=== PATIENT | male | born 1950 | race Caucasian/White ===

== ENCOUNTER → 2020-08-24 | Outpatient (CLI) | payer MEDICARE ==
[~2020-08-24] MED LIST: OMNIPAQUE 350 MG/ML, 150 ML BOTTLE ONE
== END | disposition home or self-care (01) ==
LOC: CFH 14:55
PROVIDERS: ATTEND Internal Medicine Cardiovascular Disease
DX: R91.1 Solitary pulmonary nodule (principal); I48.91 Unspecified atrial fibrillation
CPT/HCPCS: 71046; 75572; Q9967

== ENCOUNTER 2020-08-27 10:19 | Observation (INO) | payer MEDICARE ==
[~2020-08-27] VITALS: Ht 177.8 cm; Wt 76.3 kg
[2020-08-27 02:00] VITALS: BP 118/76
[2020-08-27] MEDS ORDERED: SODIUM CHLORIDE 0.9% 1,000 ML IV SCH (11:00)
[2020-08-27] MEDS ORDERED: SODIUM CHLORIDE 0.9% 1,000 ML IV ONE (11:00)
[2020-08-27] MEDS ORDERED: LIDOCAINE 2%, 20ML ONE (11:15)
[2020-08-27 11:18] LABS: BASOPHILS % (AUTO) 1 % (0-1); EOSINOPHILS % (AUTO) 2 % (1-7); LYMPHOCYTES % (AUTO) 16 % (22-44); MEAN CORPUSCULAR HEMOGLOBIN 31.6 pg (27.5-34.5); MEAN CORPUSCULAR HGB CONC 34.3 g/dL (33.2-36.2); MEAN PLATELET VOLUME 6.6 fL (7.4-10.4); MONOCYTES % (AUTO) 10 % (2-9); NEUTROPHILS % (AUTO) 71 % (42-75); PLATELET COUNT 637 x10^3/uL (130-400); RED BLOOD COUNT 5.17 x10^6/uL (4.38-5.82); RED CELL DISTRIBUTION WIDTH 12.6 % (9.4-14.8)
[2020-08-27 11:19] LABS: MD NO
[2020-08-27] MEDS ORDERED: RIVA20TA PO (11:19)
[2020-08-27] MEDS ORDERED: LEVO150T5 PO (11:19)
[2020-08-27] MEDS ORDERED: METO25TA91 PO (11:19)
[2020-08-27] MEDS ORDERED: PHENYLEPHRINE 10 MG/ML ONE (11:22)
[2020-08-27] MEDS ORDERED: ONDANSETRON 2MG/ML, 2ML ONE (11:22)
[2020-08-27] MEDS ORDERED: EPHEDRINE 50 MG/ML, 1ML ONE (11:22)
[2020-08-27] MEDS ORDERED: DEXAMETHASONE 4 MG/ML, 1ML ONE (11:22)
[2020-08-27 11:25] LABS: ANION GAP 5 mmol/L (5-15); CALCIUM 9.2 mg/dL (8.5-10.1); CHLORIDE 108 mmol/L (98-107); CREATININE 0.96 mg/dL (0.7-1.3)
[2020-08-27] MEDS: PLEASE ENTER ALLERGIES MC SCH ×2 (11:30→20:47)
[2020-08-27] MEDS ORDERED: MIDAZOLAM 1 MG/ML, 2ML ONE (11:32)
[2020-08-27] MEDS ORDERED: FENTANYL PF 250 MCG/5ML ONE (11:32)
[2020-08-27] MEDS ORDERED: HEPARIN 1,000 UNITS/ML, 10ML ONE ×2 (12:48)
[2020-08-27] MEDS ORDERED: ROCURONIUM 10MG/ML,5ML ONE (12:48)
[2020-08-27] MEDS ORDERED: PROPOFOL 10 MG/ML, 20ML ONE (12:48)
[2020-08-27] MEDS ORDERED: FENTANYL PF 100 MCG/2ML ONE (14:13)
[2020-08-27] MEDS ORDERED: PROMETHAZINE 25 MG/ML, 1ML IVPush PRN (14:30)
[2020-08-27] MEDS ORDERED: HYDROmorphone 1 MG/ML, 1ML INJ IVPush PRN (14:30)
[2020-08-27] MEDS ORDERED: LABETALOL 5MG/ML, 20ML IV PRN (14:30)
[2020-08-27] MEDS ORDERED: ONDANSETRON 2MG/ML, 2ML IVPush PRN (14:30)
[2020-08-27] MEDS ORDERED: OXYcodone 5 MG/5 ML ORAL.SOL UDC PO PRN (14:30)
[2020-08-27] MEDS ORDERED: hydrALAzine 20 MG/ML, 1ML IV PRN (14:30)
[2020-08-27] MEDS ORDERED: ACETAMINOPHEN 325 MG TABLET PO PRN ×2 (14:30)
[2020-08-27] MEDS ORDERED: PROMETHAZINE 12.5 MG SUPP PR PRN (14:30)
[2020-08-27] MEDS ORDERED: MEPERIDINE/PF 25MG/0.5ML IVPush PRN (14:30)
[2020-08-27] MEDS ORDERED: FENTANYL PF 100 MCG/2ML IV PRN (14:30)
[2020-08-27] MEDS ORDERED: EPHEDRINE 50 MG/ML, 1ML IVPush PRN (14:30)
[2020-08-27] MEDS ORDERED: ALBUTEROL SULFATE 2.5 MG/3 ML NPPB PRN (14:30)
[2020-08-27] MEDS ORDERED: DIPHENHYDRAMINE 50 MG/ML, 1ML IVPush ONE (14:30)
[2020-08-27] MEDS ORDERED: MIDAZOLAM 1 MG/ML, 2ML IV PRN (14:30)
[2020-08-27] MEDS ORDERED: DIAZEPAM 5 MG/ML, 2ML IVPush PRN (14:30)
[2020-08-27] MEDS ORDERED: RIVAROXABAN 20 MG TABLET PO ONE ×3 (15:00→16:00)
[2020-08-27] MEDS: SOTALOL 80MG TABLET PO SCH (18:41)
[2020-08-27 20:00] VITALS: BP 108/67
[2020-08-27] MEDS: COLCHICINE 0.6 MG CAPSULE PO SCH (20:47)
[2020-08-28 02:55] VITALS: BP 93/56
[2020-08-28] MEDS: PLEASE ENTER ALLERGIES MC SCH ×2 (04:39→08:23)
[2020-08-28] MEDS: SOTALOL 80MG TABLET PO SCH (06:04)
[2020-08-28 06:30] VITALS: BP 105/71
[2020-08-28] MEDS ORDERED: RIVAROXABAN 20 MG TABLET PO SCH ×2 (08:00→09:00)
[2020-08-28] MEDS: COLCHICINE 0.6 MG CAPSULE PO SCH (08:10)
[2020-08-28] MEDS ORDERED: LEVOTHYROXINE 150 MCG TABLET PO SCH (09:00)
[2020-08-28] MEDS ORDERED: COLC0.6C3 PO (10:16)
[2020-08-28] MEDS ORDERED: ACET325T26 PO (10:16)
[2020-08-28] MEDS ORDERED: SOTA80TA18 PO (10:16)
== END 2020-08-28 12:20 | disposition home or self-care (01) ==
LOC: CACL 10:19 → ORIP 14:28 → 5SO 17:51 → DCLOUNGE 08-28 12:12
PROVIDERS: ADMIT Internal Medicine Cardiovascular Disease; ATTEND Internal Medicine Cardiovascular Disease
DX: I48.91 Unspecified atrial fibrillation (principal); Z20.822 Contact with and (suspected) exposure to COVID-19; I48.92 Unspecified atrial flutter; I42.9 Cardiomyopathy, unspecified; E03.9 Hypothyroidism, unspecified; F10.10 Alcohol abuse, uncomplicated; Z79.899 Other long term (current) drug therapy
CPT/HCPCS: 36415; 80048; 85025; 85347; 93005; 93306; 93312; 93321; 93325; 93613; 93655; 93656; 93657; 93662; C1730; C1732; C1759; C1766; C1893; C1894; G0378; J1100; J1644; J2250; J2370; J2405; J2704; J3010; J3490; U0003